=== PATIENT | male | born 1960 | race Caucasian/White ===

== ENCOUNTER 2017-10-10 23:50 | Emergency (ER) | payer OTHER | END 2017-10-11 01:29 | disposition home or self-care (01) | LOC: ER 23:50 | DX: T83.090A Other mechanical complication of cystostomy catheter, initial encounter (principal); Y93.89 Activity, other specified; Y99.8 Other external cause status; Y92.89 Other specified places as the place of occurrence of the external cause | CPT/HCPCS: 51702; 99284-25 ==